=== PATIENT | female | born 1990 | race Caucasian/White ===

== ENCOUNTER 2016-09-01 22:54 | Emergency (ER) | payer OTHER ==
--- NOTE | 2016-09-01 23:51 | ED CLINICAL REPORT ---
Clinical Report - Physicians/Mid Levels [facility] [address] [place] [address] 09/01/2016 22:57 Patient: MARY ANDRES Time Seen: 23:37. Arrived- By private vehicle. Historian- patient and mother. HISTORY OF PRESENT ILLNESS Chief Complaint: Twitching. At its maximum, severity described as moderate. When seen in the E.D., severity described as moderate. Modifying factors- (pt thinks it is worse with Cymbalta). This started today about 1700 and is still present. It was gradual in onset and has been intermittent and waxing/waning. No headache. She has had fatigue. She has had muscle aches (with "twitches"). Similar symptoms previously: Recent medical care: The patient was seen recently in a clinic. REVIEW OF SYSTEMS Last normal menstrual period now. No fever, nasal congestion, cough, difficulty breathing or abdominal pain. No nausea, vomiting, diarrhea, black stools or bloody stools. No difficulty with urination, skin rash, calf pain, headache or blackouts. No difficulty with ambulation. All systems otherwise negative, except as recorded above. PAST HISTORY PROBLEMS: Anxiety Reaction. Depression. Possible MS SURGERIES: . Medications: Cymbalta Oral. Allergies: No Known Drug Allergy. SOCIAL HISTORY Smoker- current status unknown. Occasional alcohol use. No drug use. Residence: recently moved to the area from [place]. ADDITIONAL NOTES The nursing notes have been reviewed. PHYSICAL EXAM Vital Signs: 09/01/2016 23:08 BP: 132/78. HR: 65. RR: 16. O2 saturation: 100%. Temp: 98 F. Pain level now: 4/10. Appearance: Alert. Patient in mild distress. Eyes: Eyes normal inspection. No scleral icterus or pale conjunctivae. ENT: Pharynx normal. No pharyngeal erythema or tonsillar exudate. The mucous membranes are not dry. Neck: Normal inspection. Neck supple. CVS: Normal heart rate and rhythm. Heart sounds normal. Pulses normal. Respiratory: No respiratory distress. Breath sounds normal. Abdomen: No visible injury. Soft and nontender. Back: Normal inspection. Skin: Skin warm and dry. Normal skin color. No rash. Extremities: Extremities exhibit normal ROM. No calf tenderness. No lower extremity edema. Neuro: Oriented X 3. No motor deficit. No sensory deficit. Reflexes normal. Reflex exam: right patellar 2+, left patellar 2+, right Achilles 2+ and left Achilles 2+. LABS, X-RAYS, AND EKG Pulse Oximetry: 09/01/2016 23:08 O2 saturation: 100%. (FIO2 - room air). Interpretation: normal. PROGRESS AND PROCEDURES Course of Care: Ativan 2 mg PO given. Patient is stable. Physical exam findings are improved. Symptoms better. May be dystonia. Patient/family counseled. Old ED records reviewed. Disposition: Discharged. Condition: stable and improved. CLINICAL IMPRESSION Adverse drug reaction involving an antidepressant. (Cymbalta). Possible dystonic drug reaction. cymbalta. INSTRUCTIONS Do not work for two days. Drink plenty of fluids. Warnings: Further evaluation is necessary. SEDATIVE MEDICATION: You were given sedative medication during your visit. Do not drive or operate dangerous machinery. GENERAL WARNINGS: Return or contact your physician immediately if your condition worsens or changes unexpectedly, if not improving as expected, or if other problems arise. Your Current Medications: STOP TAKING THE FOLLOWING MEDICATIONS: Cymbalta Oral. OTC Medications: Take Benadryl according to label instructions. Available over the counter. (25 - 50 mg every 8 hours as needed for twitching) Follow-up: Follow up with your doctor Nano tomorrow. (Electronically signed by Moncho Peñaloza DO 09/02/2016 20:33)
--- NOTE | 2016-09-01 23:51 | ED NURSING NOTES ---
Clinical Report - Nurses [facility] [address] [place] [address] 09/01/2016 22:57 Patient: MARY ANDRES TRIAGE Triage time 23:08. Chief Complaint: (shakey, weak, muscle spasms). --23:12 Chasity Caballero R.N. 23:08 09/01/16. BP: 132/78. HR: 65. RR: 16. O2 saturation: 100%. Temp: 98 F (oral). Pain level now: 12/06. --23:12 Chasity Caballero R.N. Weight: 61.2 kg stated. Height/Length: 64 inches Per Patient. BMI: 23.2. --23:10 Chasity Caballero R.N. Medications Cymbalta Oral. --23:09 Chasity Caballero R.N. Allergies No Known Drug Allergy. --23:10 Chasity Caballero R.N. History Arrived by private vehicle. Historian: patient and family. Accompanied by family. Primary physician (Nano). ( pt began taking Cymbalta on 08-28 and reports feeling "strange" at that time and today began feeling worse). This started today. Onset. (at about 1700). 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 PAST MEDICAL HX: Immunizations: up-to-date. Last normal menstrual period now. SOCIAL HX: Heavy tobacco smoker (cigarette)- less than 1 pack per day. Occasional alcohol use. No drug use. NUTRITIONAL RISK ASSESSMENT: The nutritional risk assessment revealed no deficiencies. FUNCTIONAL ASSESSMENT: Functional assessment: no impairments noted. --23:12 Chasity Caballero R.N. PROBLEMS: Anxiety Reaction. Depression. --23:10 Chasity Caballero R.N. ADDITIONAL SURGERIES: . --23:10 Chasity Caballero R.N. PHYSICAL ASSESSMENT To room via wheelchair. Patient gowned. GENERAL / NEURO / PSYCH: Alert. Oriented X 4. Appears in no acute distress. HEENT: No facial asymmetry noted. RESPIRATORY: Respirations not labored. CVS: Capillary refill less than 2 seconds. SKIN: Skin is warm and dry. --23:12 Chasity Caballero R.N. GENERAL / NEURO / PSYCH: ( upon initial assessment, pt moving head and arms in irregular gross motor movements which resolve when pt is talking. good eye contact.). --23:32 Chasity Caballero R.N. NURSING PROGRESS NOTES Head of bed elevated. Two patient identifiers checked. Call light placed in reach. Side rails up x 2. Bed placed in lowest position. Brakes of bed on. --23:12 Chasity aCballero R.N. The initial plan of care for this patient has been created This plan of care was discussed with the patient and family. --23:32 Chasity Caballero R.N. 23:52 09/01/2016 Ativan (LORazepam) PO Tablets 2 mg given. Allergies verified, confirmed 5 rights and sedative warning given to the patient. --23:52 Chasity Caballero R.N. DISPOSITION / DISCHARGE Condition at departure: stable. No learning barriers present. Discharge instructions provided and reviewed with the patient and parent. Reviewed medication(s) side effects, precautions, dosing and course information. Prescription(s) given to the patient. Patient verbalized understanding. Written instructions provided in Spanish. The patient was discharged home and accompanied by parent. She left the Emergency Department in a wheelchair and via private vehicle. Parent driving. --00:01 Chasity Caballero R.N. 00:00 09/02/16. BP: 120/83. HR: 62. RR: 15 (regular and unlabored). O2 saturation: 100%. Temp: deferred. Pain level now: 12/06. --00:01 Chasity Caballero R.N. Locked/Released at 09/02/2016 0:02 by Chasity Caballero R.N.
--- NOTE | 2016-09-01 23:51 | ED ORDER SUMMARY ---
..... Patient: MARY ANDRES OrderSheet [facility] VisitID: [id number] [address] [place] [address] 26y, F Registration Date/Time: 09/01/2016 ORDER SHEET Weight: 61.2 kg (stated) Allergies: No Known Drug Allergy GENERAL ORDERS: MEDICATION ORDERS: Ativan PO 2 mg (HIGH ALERT MEDICATION, NOW) (23:47 09/01/2016 Gloria OREILLY) (k 23:48 Julio C Hager) (23:52 Julio C Hager) IV FLUIDS: ORDER SHEET NOTES: [Electronically signed by Chasity Caballero R.N. (00:02 09/02/2016)] [Electronically signed by Moncho Peñaloza DO (20:33 09/02/2016)] [Electronically locked/signed by Chasity Caballero R.N. (00:02 09/02/2016)]
--- NOTE | 2016-09-01 23:51 | ED NURSING NOTES ---
Clinical Report - Nurses [facility] [address] [place] [address] 09/01/2016 22:57 Patient: MARY ANDRES TRIAGE Triage time 23:08. Chief Complaint: (shakey, weak, muscle spasms). --23:12 Chasity Caballero R.N. 23:08 09/01/16. BP: 132/78. HR: 65. RR: 16. O2 saturation: 100%. Temp: 98 F (oral). Pain level now: 12/06. --23:12 Chasity Caballero R.N. Weight: 61.2 kg stated. Height/Length: 64 inches Per Patient. BMI: 23.2. --23:10 Chasity Caballero R.N. Medications Cymbalta Oral. --23:09 Chasity Caballero R.N. Allergies No Known Drug Allergy. --23:10 Chasity Caballero R.N. History Arrived by private vehicle. Historian: patient and family. Accompanied by family. Primary physician (Nano). ( pt began taking Cymbalta on 08-28 and reports feeling "strange" at that time and today began feeling worse). This started today. Onset. (at about 1700). 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 PAST MEDICAL HX: Immunizations: up-to-date. Last normal menstrual period now. SOCIAL HX: Heavy tobacco smoker (cigarette)- less than 1 pack per day. Occasional alcohol use. No drug use. NUTRITIONAL RISK ASSESSMENT: The nutritional risk assessment revealed no deficiencies. FUNCTIONAL ASSESSMENT: Functional assessment: no impairments noted. --23:12 Chasity Caballero R.N. PROBLEMS: Anxiety Reaction. Depression. --23:10 Chasity Caballero R.N. ADDITIONAL SURGERIES: . --23:10 Chasity Caballero R.N. PHYSICAL ASSESSMENT To room via wheelchair. Patient gowned. GENERAL / NEURO / PSYCH: Alert. Oriented X 4. Appears in no acute distress. HEENT: No facial asymmetry noted. RESPIRATORY: Respirations not labored. CVS: Capillary refill less than 2 seconds. SKIN: Skin is warm and dry. --23:12 Chasity Caballero R.N. GENERAL / NEURO / PSYCH: ( upon initial assessment, pt moving head and arms in irregular gross motor movements which resolve when pt is talking. good eye contact.). --23:32 Chasity Caballero R.N. NURSING PROGRESS NOTES Head of bed elevated. Two patient identifiers checked. Call light placed in reach. Side rails up x 2. Bed placed in lowest position. Brakes of bed on. --23:12 Chasity Caballero R.N. The initial plan of care for this patient has been created This plan of care was discussed with the patient and family. --23:32 Chasity Caballero R.N. 23:52 09/01/2016 Ativan (LORazepam) PO Tablets 2 mg given. Allergies verified, confirmed 5 rights and sedative warning given to the patient. --23:52 Chasity Caballero R.N. DISPOSITION / DISCHARGE Condition at departure: stable. No learning barriers present. Discharge instructions provided and reviewed with the patient and parent. Reviewed medication(s) side effects, precautions, dosing and course information. Prescription(s) given to the patient. Patient verbalized understanding. Written instructions provided in Slovenian. The patient was discharged home and accompanied by parent. She left the Emergency Department in a wheelchair and via private vehicle. Parent driving. --00:01 Chasity Caballero R.N. 00:00 09/02/16. BP: 120/83. HR: 62. RR: 15 (regular and unlabored). O2 saturation: 100%. Temp: deferred. Pain level now: 12/06. --00:01 Chasity Caballero R.N. Locked/Released at 09/02/2016 0:02 by Chasity Caballero R.N.
--- NOTE | 2016-09-01 23:51 | ED ORDER SUMMARY ---
..... Patient: MARY ANDRES OrderSheet [facility] VisitID: [id number] [address] [place] [address] 26y, F Registration Date/Time: 09/01/2016 ORDER SHEET Weight: 61.2 kg (stated) Allergies: No Known Drug Allergy GENERAL ORDERS: MEDICATION ORDERS: Ativan PO 2 mg (HIGH ALERT MEDICATION, NOW) (23:47 09/01/2016 Gloria OREILLY) (k 23:48 Julio C Hager) (23:52 Julio C Hager) IV FLUIDS: ORDER SHEET NOTES: [Electronically signed by Chasity Caballero R.N. (00:02 09/02/2016)] [Electronically signed by Moncho Peñaloza DO (20:33 09/02/2016)] [Electronically locked/signed by Chasity Caballero R.N. (00:02 09/02/2016)]
--- NOTE | 2016-09-02 20:33 | ED DISCHARGE INSTRUCTIONS ---
Patient: MARY ANDRES General Instructions [facility] VisitID: [id number] [place] [address] 26y, F Registration Date/Time: 09/01/2016 Adverse drug reaction involving an antidepressant. (Cymbalta). INSTRUCTIONS Do not work for two days. Drink plenty of fluids. Warnings: Further evaluation is necessary. SEDATIVE MEDICATION: You were given sedative medication during your visit. Do not drive or operate dangerous machinery. GENERAL WARNINGS: Return or contact your physician immediately if your condition worsens or changes unexpectedly, if not improving as expected, or if other problems arise. Your Current Medications: STOP TAKING THE FOLLOWING MEDICATIONS: Cymbalta Oral. OTC Medications: Take Benadryl according to label instructions. Available over the counter. (25 - 50 mg every 8 hours as needed for twitching) Follow-up: Follow up with your doctor Nano tomorrow. ADDITIONAL INFORMATION Drug Reaction: Dystonic You are having a muscular reaction to a drug you have taken. This can cause tightening or stiffening of the muscles of the eyes, tongue, jaw, neck, back, arms and legs. If untreated, this reaction would last until the drug is eliminated naturally from your body. This could take up to three days. However, you have been treated with an "antidote", to reverse this reaction (Benadryl (diphenhydramine), Cogentin (benzatropine), or Artane (trihexyphenidyl) . Home Care: 1) You may eat and drink normally. Take your other prescribed meds as directed. Avoid alcohol during the next three days. 2) Take the antidote medicine for at least two days (48 hours) to prevent recurrence of symptoms. After two days, most of the offending medicine should be eliminated from your body. 3) If you feel the symptoms return after stopping the antidote, start the antidote medicine again for another 48 hours. If this does not help or if you run out of medicine, contact your doctor. Preventing Future Reactions 1) Most dystonic reactions are due to a class of drugs called PHENOTHIAZINES. This includes anti-nausea drugs such as Compazine, Phenergan, Tigan and Inapsine; as well as tranquillizers such as Thorazine, Mellaril and Haldol. If you have reacted to one drug in this class, any drug in this class will probably cause the same reaction. 2) Unless specifically advised by your doctor, do not take theoffending drug ever again . It will cause the same reaction in the future. In some cases where the offending drug is needed to treat your condition and no alternatives exist, each dose can be taken along with the antidote medicine. 3) Whenever you go to a doctor or hospital for treatment, tell the staff of your reaction to this drug so that it will not be used. Follow Up with your doctor as advised or in three days , if you are still feeling any muscle tightness. Get Prompt Medical Attention if any of the following occur: -- Symptoms return and are not controlled by starting the antidote medicine again -- Symptoms continue or require antidote medicine for more than three days You have been given the following additional information: Drug Reaction, Dystonic Do not work for two days. (Electronically signed by Moncho Peñaloza DO 09/02/2016 20:33)
--- NOTE | 2016-09-02 20:33 | ED MAR SUMMARY ---
..... Medication Administration Record [facility] [address] [place] [address] Patient: MARY ANDRES Visit ID: [id number] 26y, F Weight: 61.2 kg Height/Length: 64 in BMI: 23.2 ALLERGIES: No Known Drug Allergy Given 23:52 09/01/2016 Chasity Caballero RRamakrishnaNRamakrishna Medication Administered: ATIVAN [PO] (LORAZEPAM), Dose: 2 mg Tablets PO. Medication Ordered: Ativan PO 2 mg (HIGH ALERT MEDICATION, NOW).
--- NOTE | 2016-09-02 20:33 | ED MAR SUMMARY ---
..... Medication Administration Record [facility] [address] [place] [address] Patient: MARY ANDRES Visit ID: [id number] 26y, F Weight: 61.2 kg Height/Length: 64 in BMI: 23.2 ALLERGIES: No Known Drug Allergy Given 23:52 09/01/2016 Chasity Caballero RRamakrishnaNRamakrishna Medication Administered: ATIVAN [PO] (LORAZEPAM), Dose: 2 mg Tablets PO. Medication Ordered: Ativan PO 2 mg (HIGH ALERT MEDICATION, NOW).
--- NOTE | 2016-09-02 20:33 | ED MED RECONCILIATION SUMMARY ---
Patient: MARY ANDRES Medication Reconciliation Report [facility] VisitID: [id number] [address] [place] [address] 26y, F Registration Date/Time: 09/01/2016 Weight: 61.2 kg Height/Length: 64 in. BMI: 23.2 ALLERGIES: No Known Drug Allergy The patient's Home Medications are listed below: STOP TAKING THE FOLLOWING MEDICATIONS: Cymbalta Oral The source(s) of the original Home Medication information: Not obtained. The following Medications were given to the patient in the Emergency Department: Ativan [PO] PO 2 mg, administered: 09/01/2016 11:52:00 PM The following Medications were prescribed to the patient: Take Benadryl according to label instructions. Available over the counter.(25 - 50 mg every 8 hours as needed for twitching) -- Moncho Peñaloza,
--- NOTE | 2016-09-02 20:33 | ED MED RECONCILIATION SUMMARY ---
Patient: MARY ANDRES Medication Reconciliation Report [facility] VisitID: [id number] [address] [place] [address] 26y, F Registration Date/Time: 09/01/2016 Weight: 61.2 kg Height/Length: 64 in. BMI: 23.2 ALLERGIES: No Known Drug Allergy The patient's Home Medications are listed below: STOP TAKING THE FOLLOWING MEDICATIONS: Cymbalta Oral The source(s) of the original Home Medication information: Not obtained. The following Medications were given to the patient in the Emergency Department: Ativan [PO] PO 2 mg, administered: 09/01/2016 11:52:00 PM The following Medications were prescribed to the patient: Take Benadryl according to label instructions. Available over the counter.(25 - 50 mg every 8 hours as needed for twitching) -- Moncho Peñaloza,
== END 2016-09-02 | disposition home or self-care (01) ==
LOC: ED SRH 22:54
DX: R25.3 Fasciculation (principal); T43.215A Adverse effect of selective serotonin and norepinephrine reuptake inhibitors, initial encounter; Y92.9 Unspecified place or not applicable; F17.200 Nicotine dependence, unspecified, uncomplicated